=== PATIENT | female | born 1940 | race Caucasian/White ===

== ENCOUNTER 2016-11-05 13:38 | Emergency (ER) | payer OTHER ==
[~2016-11-05] VITALS: Ht 162.6 cm; Wt 53.0 kg
[2016-11-05 14:19] LABS: HEMATOCRIT 42.4 % (36.0-46.0); MCH 29.4 PG (29.0-34.0); MCV 88.9 FL (83-99); MEAN PLAT.VOLUME 10.8 uM^3 (9.5-12.4); PLATELET COUNT 141 K/uL (156-360); RBC DIS.WIDTH-CV 13.4 % (11.8-14.6); RBC DIS.WIDTH-SD 43.8 % (39-53); RED BLOOD COUNT 4.77 M/uL (3.80-5.20); WHITE BLOOD COUNT 7.3 K/uL (4.1-10.2)
[2016-11-05 14:30] LABS: CHLORIDE 99 mEq/L (99-109); POTASSIUM 4.3 mEq/L (3.7-5.4); SODIUM 136 mEq/L (136-147)
[2016-11-05 14:31] LABS: GLUCOSE 102 mg/dL (70-99)
[2016-11-05 14:33] LABS: ANION GAP 9 MEQ/L (2-14)
[2016-11-05 14:35] LABS: GFR ESTIMATE (CALCULATED) > 59 mL/min/
[2016-11-05 14:36] LABS: UREA NITROGEN (BUN) 19 mg/dL (9-23)
[2016-11-05 14:54] LABS: ADD MIUA? YES; BILIRUBIN NEGATIVE; BLOOD LARGE; COLOR YELLOW ((YELLOW)); GLUCOSE (STRIP) NEGATIVE; KETONES 5; LEUKOCYTES NEGATIVE; NITRITE NEGATIVE; PROTEIN (STRIP) 100; SPECIFIC GRAVITY 1.018 (1.000-1.030); UROBILINOGEN 0.2 MG/DL (0.2-1.0)
[2016-11-05] MEDS ORDERED: PERCOCET 5/31 TABLET PO (15:24)
[2016-11-05] MEDS ORDERED: ZOFRAN ODT4 MG PO (15:24)
[2016-11-05 15:25] LABS: BACTERIA RARE /HPF; EPITHELIAL CELLS NONE SEEN /HPF; MUCUS TRACE /LPF; RED BLOOD CELLS TNTC /HPF (0-5); WHITE BLOOD CELLS 0-5 /HPF (0-5)
[2016-11-05 15:45] VITALS: BP 150/79
== END 2016-11-05 15:45 | disposition home or self-care (01) ==
LOC: EME 13:38
PROVIDERS: Physician Assistant
DX: N20.0 Calculus of kidney (principal); Z87.442 Personal history of urinary calculi
CPT/HCPCS: 74176; 80048; 81003; 85027; 99281; 99284; J1885